=== PATIENT | male | born 1965 | race African-American/Black ===

== ENCOUNTER 2019-03-21 09:32 | Emergency (ER) | payer SELFPAY ==
[~2019-03-21] VITALS: Ht 185.4 cm; Wt 83.5 kg
[2019-03-21 10:58] VITALS: BP 118/74
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
== END 2019-03-21 12:14 | disposition home or self-care (01) ==
LOC: ER 09:32
DX: S70.12XA Contusion of left thigh, initial encounter (principal); V73.5XXA Driver of bus injured in collision with car, pick-up truck or van in traffic accident, initial encounter; Y93.89 Activity, other specified; Y92.488 Other paved roadways as the place of occurrence of the external cause; Y99.8 Other external cause status
CPT/HCPCS: 99281